=== PATIENT | female | born 1950 | race Caucasian/White ===

== ENCOUNTER 2016-12-17 22:12 | Emergency (ER) | payer MEDICARE, OTHER ==
[2013-02-01 13:38] VITALS: BMI 23.1
[~2016-12-17 22:12] MED LIST: BACTRIM 400-801 TAB; PRILOSEC10 MG; SYNTHROID25 MCG
== END 2016-12-18 00:37 | disposition home or self-care (01) ==
LOC: D.ER 22:12
DX: S63.612A Unspecified sprain of right middle finger, initial encounter (principal); X58.XXXA Exposure to other specified factors, initial encounter; M25.441 Effusion, right hand

== ENCOUNTER 2017-06-10 05:06 | Day surgery (SDC) | payer MEDICARE, OTHER ==
[~2017-06-10 05:06] MED LIST changes: +ASCORBIC ACID500 MG PO; +BILBERRY100 MG PO; +BYSTOLIC5 MG PO; +CALTRATE 600 M600 M1 PO; +OCUVITE TABLET1 TA1 PO; +PEPCID40 MG PO; +SYNTHROID100 MCG PO; -SYNTHROID25 MCG; +VITAMIN B COMPL1 TAB PO; +XIFAXAN550 MG PO
[2017-06-10 06:17] LABS: BASOPHILS 0.3 % (0-2); EOSINOPHILS 2.6 % (0-7); HEMOGLOBIN 13.6 g/dL (12-16); IMMATURE GRANULOCYTES 0.2 % (0-5); LYMPHOCYTES 30.7 % (15-50); MCH 31.1 pg (26.0-34.0); MCHC 33.2 g/dL (31.0-37.0); MCV 93.8 fL (80.0-100.0); MEAN PLATELET VOLUME 11.6 fL (7.4-10.4); MONOCYTES 9.8 % (2-11); NEUTROPHILS 56.4 % (40-80); RBC 4.37 10x6/uL (4.00-5.40); RDW 13.5 % (11.5-14.5); WBC 6.5 10x3/uL (4.8-10.8)
[2017-06-10 06:20] LABS: PLATELET COUNT 163 10x3/uL (130-400)
[2017-06-10 06:31] LABS: CALC OSMOLALITY 282 mosm/kg (275-300); CALCIUM 8.8 mg/dL (8.5-10.1); CARBON DIOXIDE 28.1 mmol/L (21.0-32.0); CHLORIDE - SERUM 104 mmol/L (98-107); CREATININE - SERUM 0.8 mg/dL (0.6-1.3); GLUCOSE 109 mg/dL (74-106); POTASSIUM - SERUM 3.9 mmol/L (3.5-5.1); SODIUM 140 mmol/L (136-145); UREA NITROGEN 21 mg/dL (7-18); eGFR NON AFRICAN AMERICAN 75 mL/min (90-120)
[2017-06-10 06:34] VITALS: BP 128/71; BMI 23.0
[2017-06-10] MEDS ORDERED: DILAUDID2 MG PO (09:15)
--- NOTE | 2017-06-10 15:58 | NUR ---
1230--IV DC'D. GAMA KISER 1240--DISCHARGE INSTRUCTIONS GIVEN, PT VERBALIZES UNDERSTANDING. PT OFF UNIT VIA WC. GAMA KISER
--- NOTE | 2017-06-11 14:03 | OP ---
PATIENT NAME: JASEN CABELLO MEDICAL RECORD: [id number] :48 LOCATION:D.PAT ADMISSION DATE: SURGEON: MARCIO MARCUS MD DATE OF OPERATION: 06/10/2017 PREOPERATIVE DIAGNOSES: 1. Umbilical incisional hernia. 2. Gallstones. 3. Hypothyroidism. 4. Arthritis. POSTOPERATIVE DIAGNOSES: 1. Umbilical incisional hernia. 2. Gallstones 3. Hypothyroidism. 4. Arthritis. PROCEDURES: 1. Laparoscopic cholecystectomy. 2. Umbilical hernia repair without mesh. SURGEON: Marcio Marcus MD REPORT OF PROCEDURE: The patient's abdomen was prepped and draped in sterile fashion. A skin incision was made just above the umbilicus in the midline. Electrocautery was used to dissect through the subcutaneous tissues and we encountered the fat-containing small incisional hernia. This hernia was approximately 1 cm in greatest diameter I was able to free up the edges of the hernia sac off of the fascia and placed the fatty contents back into the abdominal cavity. I extended the hernia defect superiorly and was able to place my finger in the abdominal cavity. I took down some adhesions that were present from the omentum to the anterior abdominal wall. Upon feeling the abdominal wall, I could feel there is another hernia defect, which was about 0.5 cm in greatest diameter just to the left of midline. Again, the fascia was freed up from the hernia sac. A 0 Vicryl was placed on each side of the fascia and a 12-mm Akbar port was inserted into the abdominal cavity, insufflation was obtained. Under direct visualization, a 5-mm trocar was placed in the epigastrium and two more 5-mm trocars were placed in the right subcostal region. The gallbladder was elevated and there was noted to be some inflammatory adhesions present. These were all teased down carefully with blunt dissection. The cystic artery and duct were dissected free and these were clipped proximally and distally, and ligated in standard fashion. The gallbladder was then taken off the liver bed using electrocautery and placed into an Endo Catch bag. Any bleeding from the liver bed was treated with electrocautery. We then irrigated out the right upper quadrant until there was good clear return of fluid. At this point, the ports and insufflation were then removed and the gallbladder was taken out through the umbilicus. The left-sided hernia defect was then reapproximated transversely using interrupted 0 Prolenes times 2. The midline hernia defect and the incision were reapproximated with interrupted 0 Prolenes times 5. There did not appear to be any tension on the incision sites and the fascial edges appeared to be viable and strong. At this point, we irrigated out the wound with normal saline and then infused a total of 10 mL of 0.25% Marcaine with epinephrine into the surrounding tissues. The subcutaneous tissues were reapproximated with interrupted 3-0 Vicryl and the skin was closed with subcutaneous 5-0 Monocryl. OPERATIVE REPORT [id number] JASEN CABELLO COMPLICATIONS: None. CONDITION: Stable. ANESTHESIA: General endotracheal and local. BLOOD LOSS: Minimal. TRANSINT:[id number] Voice Confirmation ID: [id number] DOCUMENT ID: [id number] MARCIO MARCUS MD at 1403 CC: KELL SIMMONS MD [id number] DICTATION DATE: 06/10/17921 MANUFACTURING ENGINEER AUTOMOTIVE: 06/10/17 1055 [facility] 06/10/17 [facility] [address] [place] [address]
== END 2017-06-10 12:40 | disposition home or self-care (01) ==
LOC: D.OPS 05:06 → D.PAN 07:30 → D.OPS 07:30
PROVIDERS: Surgery
DX: K42.9 Umbilical hernia without obstruction or gangrene (principal); K80.80 Other cholelithiasis without obstruction; E03.9 Hypothyroidism, unspecified; K21.9 Gastro-esophageal reflux disease without esophagitis; Z87.891 Personal history of nicotine dependence; G35 Multiple sclerosis; Z01.812 Encounter for preprocedural laboratory examination

== ENCOUNTER 2017-08-17 06:00 | Day surgery (SDC) | payer MEDICARE, OTHER ==
[~2017-08-17] VITALS: Ht 162.6 cm; Wt 59.0 kg
[~2017-08-17 06:00] MED LIST changes: +DILAUDID2 MG PO
[2017-08-17 06:31] LABS: HEMATOCRIT 44.7 % (36.0-48.0); HEMOGLOBIN 14.6 g/dL (12-16); MCH 30.5 pg (26.0-34.0); MCHC 32.7 g/dL (31.0-37.0); MCV 93.5 fL (80.0-100.0); MEAN PLATELET VOLUME 11.6 fL (7.4-10.4); RBC 4.78 10x6/uL (4.00-5.40); RDW 13.5 % (11.5-14.5); WBC 8.7 10x3/uL (4.8-10.8)
[2017-08-17 06:42] LABS: ALBUMIN 4.3 g/dL (3.4-5.0); ANION GAP 13.1 mmol/L (8-16); BILIRUBIN - TOTAL 0.4 mg/dL (0.2-1.3); CALCIUM 9.2 mg/dL (8.5-10.1); CARBON DIOXIDE 29.7 mmol/L (21.0-32.0); POTASSIUM - SERUM 3.8 mmol/L (3.5-5.1); PROTEIN - SERUM 7.4 g/dL (6.4-8.2)
[2017-08-17 06:47] LABS: APTT 26.6 SECONDS (22.8-39.4); INR 0.99 (0.85-1.17); PROTIME 12.7 SECONDS (11.6-15.0)
[2017-08-17 08:20] VITALS: BP 111/49; Ht 162.6 cm; Wt 59.0 kg
[2017-08-17] MEDS ORDERED: CYCLOBENZAPRINE10 MG PO (10:29)
[2017-08-17] MEDS ORDERED: DILAUDID2 MG PO (10:29)
--- NOTE | 2017-08-17 12:10 | NUR ---
TOLERATED FULL LIQ DIET.
--- NOTE | 2017-08-17 12:19 | OP ---
PATIENT NAME: JASEN CABELLO MEDICAL RECORD: [id number] :48 LOCATION:D.OPS ADMISSION DATE: SURGEON: MARCIO MARCUS MD DATE OF OPERATION: 08/17/2017 PREOPERATIVE DIAGNOSES: 1. Ventral incisional hernia. 2. Hypothyroidism. POSTOPERATIVE DIAGNOSES: 1. Ventral incisional hernia. 2. Hypothyroidism. PROCEDURE: Laparoscopic ventral hernia repair with 11.[address] mesh. SURGEON: Marcio Marcus MD REPORT OF PROCEDURE: The patient's abdomen was prepped and draped in sterile fashion. A Veress needle was inserted in the left upper quadrant and the abdomen was insufflated. An 11-mm Visiport trocar was then inserted in the left lateral abdomen. Once inside, I could see the Veress needle and there was no sign of any injury to bowel or surrounding structures. The Veress needle was then removed. Another 5-mm trocar was placed in the left subcostal region and 2 more 5-mm trocars were then placed in the right lateral abdomen and the patient had some omental adhesions present to the anterior abdominal wall and these were all teased down carefully with blunt dissection. Once this was done, I could see the entire anterior abdominal wall. There was a hernia defect present just inferior to the umbilicus which was about 2-3 cm in greatest diameter. Just above this right at the base of the umbilicus, there was another smaller hernia defect which was less than a centimeter in greatest diameter. In order to encompass both of these hernia defects, an 11.[address] mesh was inserted through the abdominal wall. The balloon was grasped and pulled up through the midline just below the umbilicus and was insufflated. With the balloon insufflated, we were able to pull the mesh up to the anterior abdominal wall. This was then tacked down with an Optifix Tacker device. The balloon was then removed. The mesh appeared to rest in good position up against the anterior abdominal wall. We did not see any evidence of any active bleeding. At this point, the 11-mm trocar site fascia was closed with an interrupted 0 Vicryl using a Zen-Awilda suture passer device. The ports and insufflation were then removed. The subcutaneous tissues were infused with a total of 10 mL of 0.25% Marcaine with epinephrine. The skin incisions were all closed with subcutaneous 5-0 Monocryl and dressed appropriately. COMPLICATIONS: None. CONDITION: Stable. ANESTHESIA: General endotracheal and local. BLOOD LOSS: 30 mL. TRANSINT:[id number] Voice Confirmation ID: [id number] DOCUMENT ID: [id number] OPERATIVE REPORT [id number] JASEN CABELLO CHRISTIAN MD at 1219 CC: [id number] DICTATION DATE: 08/17/17 1033 VAULT CLERK: 08/17/17 1117 [facility] [address] [place] [address]
--- NOTE | 2017-08-17 14:05 | NUR ---
PATIENT SITTING ON SIDE OF BED, C/O A LITTLE SUDDEN NAUSEA. SALTINE CRACKER GIVEN, RUBBING ALCOHOL PAD HELD UNDER NOSE FOR PATIENT TO SNIFF. PATIENT STATES NAUSEA IS BETTER. SALTINE CRACKER AND WATER TOLERATED
--- NOTE | 2017-08-17 14:16 | NUR ---
DISCHARGE INSTRUCTIONS REVIEWED WITH PATIENT. DISCHARGED HOME VIA WHEELCHAIR TO PRIVATE VEHICLE WITH FRIEND
--- NOTE | 2017-08-17 14:48 | NUR ---
1130 SERVED FULL LIQUID DIET. A. EVERT R.N. 1205 O2 2L/NASAL CANNUL REDUCED TO 1L/NASAL CANNULA. NO RESPIRATORY DIFFICULTY NOTED. A. EVERT R.N. 1220 O2 REDUCED TO 0.5L/NASAL CANNULA. NO RESPIRATORY DIFFICULTY NOTED. A. EVERT R.N.
--- NOTE | 2017-08-17 15:01 | NUR ---
1345 SITTING UP ON SIDE OF BED. ICE PACK APPLIED TO ABODMEN. Femi LOYD R.N. 1355 RX FOR DILAUDID GIVEN TO PT.'S FRIENDS TO TAKE TO PHARMACY TO BE FILLED. Femi LOYD R.N.
== END 2017-08-17 14:16 | disposition home or self-care (01) ==
LOC: D.OPS 06:00
PROVIDERS: Anesthesiology
DX: K43.2 Incisional hernia without obstruction or gangrene (principal); E03.9 Hypothyroidism, unspecified; Z01.812 Encounter for preprocedural laboratory examination

== ENCOUNTER → 2017-10-05 09:57 | Outpatient (CLI) | payer MEDICARE, OTHER ==
[2017-08-17 08:20] VITALS: BMI 22.3
[~2017-10-05 09:57] MED LIST changes: +CYCLOBENZAPRINE10 MG PO
== END | disposition home or self-care (01) ==
LOC: D.CT 09-14 09:30
DX: R41.3 Other amnesia (principal)

== ENCOUNTER 2018-06-15 08:49 | Outpatient (CLI) | payer MEDICARE, OTHER ==
[~2018-06-15] VITALS: Ht 162.6 cm; Wt 59.1 kg
--- NOTE | ~2018-06-15 | OP ---
PATIENT NAME: JASEN CABELLO MEDICAL RECORD: [id number] :48 LOCATION:D.CAT ADMISSION DATE: SURGEON: CAROL BROWNING MD DATE OF OPERATION: 06/15/2018 PROCEDURES: 1. Left heart catheterization. 2. Selective coronary angiography. 3. Left ventriculogram. INDICATION: Chest pain compatible with angina and abnormal nuclear stress test. PROCEDURE IN DETAIL: After informed consent was obtained and after a detailed description of risks, benefits as well as alternative therapies, the patient elected to proceed with angiogram and heart catheterization. The right radial area was prepped and draped in normal sterile fashion. Right radial artery was cannulated via modified Seldinger technique with placement of 5-Telugu sheath. All catheters exchanged through this sheath. FINDINGS: Left ventriculogram was performed in standard 30-degree LEE view, reveals good cardiac wall motion throughout all segments. Overall ejection fraction estimated 60%. SELECTIVE CORONARY ANGIOGRAPHY: Left main, left anterior descending, left circumflex, right coronary are all smooth-walled vessels with no angiographic evidence of coronary artery disease. OVERALL IMPRESSION: 1. No angiographic evidence of coronary artery disease. 2. Normal left heart pressures. 3. Normal left ventricular systolic function. Chest pain is noncardiac in etiology. No other cardiac workup is necessary. TRANSINT:[id number] Voice Confirmation ID: [id number] DOCUMENT ID: [id number] CAROL BROWNING MD at 0924 CC: [id number] DICTATION DATE: 06/15/18 1046 SOAPSTONER: 06/15/18 1126 DEP CLI 06/15/18 [place] [id number] [place] [id number]
--- NOTE | ~2018-06-15 | HEMODYNAMI ---
PATIENT:JASEN CABELLO MEDICAL RECORD: [id number] : 48 LOCATION:DZhaoCAT ADMISSION DATE: 06/15/18 Generatedon:06/15/201810:46 Patient name: JASEN CABELLO Patient #: [id number] SSN: : 1950 Date of study: 06/15/2018 Page: Of Hemodynamic Procedure Report Patient Data Patient Demographics Procedure consent was obtained First Name: JASEN Gender: Female Last Name: IRINEO : 1950 [facility] Initial: J Age: 67 year(s) Patient #: [id number] Race: Unknown Additional ID: [id number] Contact details [address]: [address] [place] [address] State: [place] City: [place] Zip code: [address] Past Medical History Allergies Allergen Reaction Date Comments Reported Codeine 06/15/2018 Admission Admission Data Admission Date: 06/15/2018 Admission Time: 8:49 Admit Source: Other Procedure Procedure Types Cath Procedure Diagnostic Procedure LHC LHC w/Coronaries Procedure Description Procedure Date Procedure Date: 06/15/2018 Procedure Start Time: 10:39 Procedure End Time: 10:45 Procedure Staff Name Function Stephon Gallegos MD Performing Physician Tatyana Freeman RT Monitor Solo Roberts RT Scrub Nikolai Ospina RN Nurse Saulo Chowdary RT Director Of Security Procedure Data Cath Procedure Fluoroscopy Diagnostic fluoroscopy Total fluoroscopy Time: 1.3 time: 1.3 min min Diagnostic fluoroscopy Total fluoroscopy dose: 165 dose: 165 mGy mGy Contrast Material Contrast Material Type Amount (ml) Isovue 300 38 Entry Location Entry Primary Successful Side Size Upsize Upsize Entry Closure Londono ccessful Closure Location (Fr) 1 (Fr) 2 (Fr) Remarks Device Remarks Radial Right 6 Fr Mechanical artery Short Compression Estimated blood loss: 5 ml Diagnostic catheters Device Type Used For End Catheter Placement DIAGNOSTIC [place] 110cm 5 LV Angiography Fr catheter ([id number]) DIAGNOSTIC [place] 110cm 5 Right Coronary Fr catheter (909354) Angiography DIAGNOSTIC [place] 110cm 5 Left Coronary Fr catheter ([id number]) Angiography Procedure Complications No complications Procedure Medications Medication Administration Route Dosage Oxygen etCO2 Nasal cannula 2 l/min Heparin Flush Bag added to field 2 bags (1000units/500ml NS) 0.9% NaCl I.V. 100 ml/hr Radial Cocktail added to field 1 syringe (Verapomil 2mg/Nitro 400mcg/Heparin 1500units) Fentanyl I.V. 50 mcg Versed I.V. 1 mg Radial Cocktail I.A. 1 syringe (Verapomil 2mg/Nitro 400mcg/Heparin 1500units) Fentanyl I.V. 50 mcg Versed I.V. 1 mg Hemodynamics Rest Heart Rate: 78 (bpm) Snapshots Pre Cath Intra NCS Post Cath Vital Signs Time Heart Resp SPO2 etCO2 NIBP Rhythm Pain Sedation Rate (ipm) (%) (mmHg) (mmHg) Status Level (bpm) 10:13:18 70 16 99 23.1 127/63(96) NSR 0 (11) 10(A) , No pain 10:17:32 76 16 99 39.5 122/61(94) NSR 0 (11) 10(A) , No pain 10:21:41 80 16 99 19.4 115/64(96) NSR 0 (11) 10(A) , No pain 10:25:49 73 16 95 35.8 105/63(78) NSR 0 (11) 10(A) , No pain 10:29:59 72 16 94 36.5 99/49(68) NSR 0 (11) 10(A) , No pain 10:34:07 71 17 95 37.3 101/49(72) NSR 0 (11) 10(A) , No pain 10:38:13 67 16 94 38.8 99/53(69) NSR 0 (11) 10(A) , No pain 10:42:21 83 16 94 36.5 86/49(69) NSR 0 (11) 10(A) , No pain 10:44:22 85 17 92 37.3 100/49(69) NSR 0 (11) 10(A) , No pain Medications Time Medication Route Dose Verified Delivered Reason Notes Effectiveness by by 10:19:17 Oxygen etCO2 2 l/min Stephon Ospina RN physician cannula 10:19:24 Heparin Flush added 2 bags Stephon Menchaca used for Bag to Rosy Ospina RN procedure (1000units/500ml field NS) 10:19:33 0.9% NaCl I.V. 100 Stephonjay Mathisy Per ml/hr Rosy Ospina RN physician 10:19:48 Radial Cocktail added 1 Stephon Menchaca used for (Verapomil to syringe Rosy Ospina RN procedure 2mg/Nitro field 400mcg/Heparin 1500units) 10:38:25 Fentanyl I.V. 50 mcg Stephon Menchaca for sedation Rosy Ospina RN 10:38:31 Versed I.V. 1 mg Stephon Menchaca for sedation Rosy Ospina RN 10:39:41 Radial Cocktail I.A. 1 Stephon Stephon for (Verapomil syringe Rosy Gallegos MD vasodilation 2mg/Nitro 400mcg/Heparin 1500units) 10:40:51 Fentanyl I.V. 50 mcg Stephon Menchaca for sedation Rosy Ospina RN 10:40:56 Versed I.V. 1 mg Stephon Mathisy for sedation Rosy Ospina RN Procedure Log Time Note 9:50:08 Saulo Chowdary RT(R) sent for patient. Start room use. 9:53:26 Informed consent obtained and on chart 9:53:30 Admit Source: Other 9:54:01 Diagnostic Cath status Elective 9:54:02 Time tracking: Regular hours (M-F 7:00 - 5:00) 9:54:05 Plan of Care:Hemodynamics will remain stable., Cardiac rhythm will remain stable., Comfort level will be maintained., Respiratory function will remain adequate., Patient/ family verbilizes understanding of procedure., Procedure tolerated without complication., Recovers from procedure without complications.. 10:03:56 Patient received from Pre/Post Procedure Room to CCL 2 Alert and oriented. Tansferred to table in Supine position. 10:03:57 Warm blankets applied, and eldon hugger turned on for patient comfort. 10:03:58 Correct patient and procedure confirmed by team. 10:03:58 ECG and BP/O2 sat monitors applied to patient. 10:03:59 Full Disclosure recording started 10:12:11 Vital chart was started 10:12:12 Baseline sample Acquired. 10:18:21 Baseline sample Acquired. 10:18:25 Rhythm: sinus rhythm 10:19:17 Oxygen 2 l/min etCO2 Nasal cannula was administered by Nikolai Ospina RN; Per physician; 10:19:24 Heparin Flush Bag (1000units/500ml NS) 2 bags added to field was administered by Nikolai Ospina RN; used for procedure; 10:19:33 0.9% NaCl 100 ml/hr I.V. was administered by Nikolai Ospina RN; Per physician; 10:19:48 Radial Cocktail (Verapomil 2mg/Nitro 400mcg/Heparin 1500units) 1 syringe added to field was administered by Nikolai Ospina RN; used for procedure; 10:21:12 H&P Date Dictated: 05/31/2018 Within 30 days and on chart., H&P Addendum completed by physician on day of procedure. (MUST COMPLETE FOR ALL OUTPATIENTS). 10:21:13 Pre-procedure instructions explained to patient. 10:21:14 Pre-op teaching completed and patient verbalized understanding. 10:21:15 Family in patients room. 10:21:24 Patient NPO since Midnight. 10:21:36 Patient allergic to Codeine 10:21:38 Is the patient allergic to Iodine/contrast media? No. 10:21:40 Is patient on blood thinner?No 10:21:41 Patient diabetic? No. 10:22:02 Previous problem with sedation/anesthesia? Yes Gen Anesthesia 10:22:05 Snore? No 10:22:06 Sleep apnea? No 10:22:07 Deviated septum? No 10:22:08 Opens mouth fully? Yes 10:22:09 Sticks out tongue? Yes 10:22:12 Airway obstruction? No ? 10:22:14 Dentures? No ? 10:22:17 Pre procedure: right dorsailis pedis pulse 2+ Normal; easily identifiable; not easily obliterated 10:22:19 Modified Antonio's test Ulnar < 7 seconds 10:22:21 Patient pain scale 0/10 ?. 10:22:26 IV patent on arrival in left forearm with 0.9% NaCl at [facility]. 10:22:28 Lab results completed and on chart. 10:22:32 Right Radial & Right Groin area was prepped with chlora-prep and draped in sterile fashion 10:22:33 Alarms reviewed by Elen Duque. 10:22:33 Sharps counted by scrub and verified by R.N. 10:22:35 Use device set Radial Dx or PCI 10:22:36 ACIST Syringe (43021) opened to sterile field. 10:22:37 Medline Cath Pack ([id number]) opened to sterile field. 10:22:38 Bag Decanter (2002S) opened to sterile field. 10:22:38 DIAGNOSTIC WIRE .035 260cm J wire (036105) opened to sterile field. 10:22:39 ACIST Hand Control (08884) opened to sterile field. 10:22:40 ACIST Manifold (89158) opened to sterile field. 10:22:40 Tegaderm 4 x 4 (1626W) opened to sterile field. 10:22:42 SHEATH 6Fr Prelude Radial ([id number]) opened to sterile field. 10:29:59 Zero performed for pressure channel P1 10:37:28 Final Timeout: patient, procedure, and site verified with staff and physician. All members of the team are in agreement. 10:37:31 Right Radial site verified by team. 10:37:34 Physical assessment completed. ASA score P 2 - A patient with mild systemic disease as per Stephon Gallegos MD. 10:37:37 Sedation plan: IV Moderate Sedation Medication:Versed, Fentanyl 10:38:25 Fentanyl 50 mcg I.V. was administered by Nikolai Ospina RN; for sedation; 10:38:31 Versed 1 mg I.V. was administered by Nikolai Ospina RN; for sedation; 10:38:36 Procedure started. 10:39:01 Local anesthetic to right radial artery with Lidocaine 2% by Stephon Gallegos MD.INITIAL ACCESS ONLY 10:39:35 A 6 Fr Short sheath was inserted into the Right Radial artery 10:39:41 Radial Cocktail (Verapomil 2mg/Nitro 400mcg/Heparin 1500units) 1 syringe I.A. was administered by Stephon Gallegos MD; for vasodilation; 10:40:08 A DIAGNOSTIC [place] 110cm 5 Fr catheter (028583) was advanced over the wire and used for LV Angiography. 10:40:51 Fentanyl 50 mcg I.V. was administered by Nikolai Ospina RN; for sedation; 10:40:56 Versed 1 mg I.V. was administered by Nikolai Ospina RN; for sedation; 10:41:25 LV gram done using LEE 10:41:28 Injector settings: Ml/sec: 5, Volume: 15, 10:41:36 EF : 60 % 10:41:50 A DIAGNOSTIC [place] 110cm 5 Fr catheter ([id number]) was advanced over the wire and used for Right Coronary Angiography. 10:42:27 A DIAGNOSTIC [place] 110cm 5 Fr catheter (973119) was advanced over the wire and used for Left Coronary Angiography. 10:43:02 Catheter removed. 10:43:13 Sheath removed intact; hemostasis achieved with Mechanical Compression to the Right Radial artery. 10:43:19 Procedure ended.(Physican Out) 10:43:34 Fluoroscopy time 01.30 minutes. 10:43:38 Fluoroscopy dose: 165 mGy 10:43:38 Flurop Dose total: 165 10:43:41 Contrast amount:Isovue 300 38ml. 10:43:42 Sharps counted by scrub and verified by R.N. 10:43:43 Insertion/operative site no bleeding no hematoma. 10:43:51 Post right radial artery:stable, clean and dry 10:43:52 Post Procedure Pulses reassessed and unchanged 10:43:56 Post-procedure physical assessment completed. ASA score P 2 - A patient with mild systemic disease as per Stephon Gallegos MD. 10:44:08 Post procedure rhythm: unchanged. 10:44:10 Estimated blood loss: 5 ml 10:44:14 Post procedure instruction explained to patient.Patient verbalizes understanding. 10:44:14 Patient needs reinforcement of post procedure teaching. 10:44:22 Procedure Complication : No complications 10:44:25 See physician's report for complete and final results. 10:44:35 TR BAND Standard ([id number]) opened to sterile field. 10:44:47 Procedure and supply charges have been captured, reviewed, submitted and are correct. 10:45:07 Vital chart was stopped 10:45:09 Report given to Pre/Post Procedure Room. 10:45:15 Patient transfered to Pre/Post Procedure Room with Stretcher. 10:45:20 Procedure ended. 10:45:20 Full Disclosure recording stopped 10:45:24 End room use (Document Last) 10:45:40 TR band inflated with 10cc of air. Device Usage Item Name Manufacture Quantity Catalog Number Hospital Part Current M inimal Lot# / Charge Number Stock Stock Serial# Code ACIST Syringe Acist 1 06306 605432 802545 334325 2 0 (98087) [employer] Medline Cath Cardinal 1 [id number] 391322 53656 783216 5 Pack Health ([id number]) Bag Decanter Microtek 1 2002S 665976 25133 124779 5 (2001S) Medical Inc. DIAGNOSTIC WIRE St [place]ey 1 195474 097108 951063 451286 3 0 .035 260cm J wire (519341) ACIST Hand Acist 1 01166 009223 363921 581875 5 Control (71520) [employer] Inc ACIST Manifold Acist 1 92772 843034 929787 271451 5 (34428) [employer] Inc Tegaderm 4 x 4 3M 1 1626W 511267 306043 063145 5 (1626W) SHEATH 6Fr Merit 1 [id number] 833695 984707 090951 5 Prelude Radial Medical ([id number]) DIAGNOSTIC Terumo 1 405013 958392 286494 597948 5 [place] 110cm 5 Fr catheter (749400) TR BAND Terumo 1 [id number] 863507 023518 576973 4 0 Standard ([id number]) Signature Audit [place] Stage Time Signature Unsigned Intra-Procedure 06/15/2018 Tatyana 10:46:17 AM Counts RT(R) Signatures Monitor : Tatyana Signature : Counts RT Date : Time : [facility] [address] [place] [address]
[2018-06-15 09:11] VITALS: BP 128/62; Ht 162.6 cm; Wt 59.1 kg
[2018-06-15 09:25] LABS: BASOPHILS 0.3 % (0-2); EOSINOPHILS 4.7 % (0-7); HEMATOCRIT 43.9 % (36.0-48.0); HEMOGLOBIN 14.8 g/dL (12-16); IMMATURE GRANULOCYTES 0.1 % (0-5); LYMPHOCYTES 31.3 % (15-50); MCH 31.4 pg (26.0-34.0); MCHC 33.7 g/dL (31.0-37.0); MCV 93.2 fL (80.0-100.0); MEAN PLATELET VOLUME 11.5 fL (7.4-10.4); MONOCYTES 10.5 % (2-11); NEUTROPHILS 53.1 % (40-80); PLATELET COUNT 169 10x3/uL (130-400); RBC 4.71 10x6/uL (4.00-5.40); RDW 13.5 % (11.5-14.5); WBC 7.5 10x3/uL (4.8-10.8)
[2018-06-15 09:39] LABS: CALCIUM 9.1 mg/dL (8.5-10.1); CARBON DIOXIDE 28.5 mmol/L (21.0-32.0); CREATININE - SERUM 0.9 mg/dL (0.6-1.3); POTASSIUM - SERUM 4.5 mmol/L (3.5-5.1)
== END 2018-06-15 13:00 | disposition home or self-care (01) ==
LOC: D.CATH 08:49
PROVIDERS: Internal Medicine Interventional Cardiology
DX: R07.9 Chest pain, unspecified (principal); R94.39 Abnormal result of other cardiovascular function study; R06.00 Dyspnea, unspecified

== ENCOUNTER → 2019-02-21 13:24 | Outpatient (CLI) | payer MEDICARE, OTHER ==
[2018-06-15 09:11] VITALS: BMI 22.3
== END | disposition home or self-care (01) ==
LOC: D.RT 02-16 14:00 → D.RAD 02-16 15:00 → D.RT 13:24
PROVIDERS: ATTEND Internal Medicine Pulmonary Disease
DX: R06.02 Shortness of breath (principal)